=== PATIENT | female | born 1960 | race Caucasian/White ===

== ENCOUNTER → 2017-02-05 | Outpatient (CLI) | payer OTHER ==
[~2017-02-05] MED LIST: ALBU1AER9 INH; BUPR-269 PO; COEN1CAP17 PO; ESTR1TAB2 PO; FERR325T5 PO; FEXO1TAB49 PO; FLUT0.0529 NAE; IBUP-1428 PO; IPRA1AER2 INH; LORA-741 PO; MEDR2.5T PO; MONT1TAB3 PO; PRVC/20 PO; TRIA37.5 PO
--- NOTE | 2017-02-05 17:53 | DIAGNOSTIC IMAGING REPORT ---
MRI OF THE LUMBAR SPINE WITHOUT CONTRAST CLINICAL HISTORY: Low back pain radiating into left groin. COMPARISON STUDY: Lumbar spine MRI April 26, 2010. TECHNIQUE: Utilizing a 1.5 Mulu magnet and dedicated coil, multiplanar, multiecho imaging of the lumbar spine was performed without IV contrast. FINDINGS: For purposes of numbering on this exam, the L5-S1 disc space is assigned to axial image 23 of 25. There is 5 mm anterolisthesis of L4 and L5 which has developed since MRI April 26, 2010. This is likely on the basis of facet arthrosis. There is severe multilevel facet arthrosis within the lumbar spine. No intracanalicular mass or fluid collection is present. Conus terminates at the upper L2 level. L1-2: The central canal and neural foramen are patent. L2-3: The central canal and neural foramen are patent. L3-4: The central canal and neural foramen are patent. L4-5: There is grade I anterolisthesis. There is severe facet arthrosis. There is mild narrowing of the right neural foramen. The left neural foramen is patent. There may be a small right lateral disc osteophyte complex. L5-S1: The central canal and neural foramen are patent. There is moderate to severe facet arthrosis. IMPRESSION: 1. Grade I anterolisthesis of L4 and L5 which has developed since MRI April 26, 2010 and is likely due to facet arthrosis. 2. No central canal stenosis. 3. Mild right neural foraminal narrowing at L4-L5 with a possible far right lateral disc osteophyte complex. Electronically signed by: Alfredo Quintero M.D. 02/05/2017 5:52 PM Dictated Date/Time: 02/05/2017 5:45 PM
== END | disposition home or self-care (01) ==
LOC: C.MRI 14:57
PROVIDERS: ATTEND Physician Assistant Medical
DX: M54.5 Low back pain (principal)

== ENCOUNTER → 2017-06-11 | Outpatient (CLI) | payer OTHER ==
[~2017-06-11] MED LIST changes: -ESTR1TAB2 PO; -FEXO1TAB49 PO; -PRVC/20 PO; -TRIA37.5 PO
--- NOTE | 2017-06-11 15:11 | MAMMOGRAPHY REPORT ---
BILATERAL DIGITAL SCREENING MAMMOGRAM TOMOSYNTHESIS WITH CAD: 06/11/2017 CLINICAL HISTORY: Routine screening. Patient has no complaints. TECHNIQUE: Breast tomosynthesis in addition to standard 2D mammography was performed. Current study was also evaluated with a Computer Aided Detection (CAD) system. COMPARISON: Comparison is made to exams dated: 05/28/2016 mammogram, 05/19/2015 mammogram, 01/05/2014 mammogram, 09/17/2012 mammogram, 04/16/2011 mammogram, and 03/24/2010 mammogram - [facility]. BREAST COMPOSITION: There are scattered areas of fibroglandular density in both breasts. FINDINGS: There is a stable small grouping of punctate macrocalcifications in the lateral right breas t, that is unchanged dating back to at least 2010, therefore likely benign. No new suspicious mass, architectural distortion or cluster of microcalcifications is seen. IMPRESSION: ACR BI-RADS CATEGORY 1: NEGATIVE There is no mammographic evidence of malignancy. A 1 year screening mammogram is recommended. The pa tient will receive written notification of the results. Approximately 10% of breast cancers are not detected with mammography. A negative mammographic report should not delay biopsy if a clinically suggestive mass is present. Anna Bowman M.D. ay/:06/11/2017 14:55:36 Mixer Wet Pour: Radha REED)(M), [facility] letter sent: Normal 1/2 BI-RADS Code: ACR BI-RADS Category 1: Negative
== END | disposition home or self-care (01) ==
LOC: C.MAMM 11:26
PROVIDERS: ATTEND Obstetrics & Gynecology
DX: Z12.31 Encounter for screening mammogram for malignant neoplasm of breast (principal)

== ENCOUNTER → 2017-06-24 | Outpatient (CLI) | payer OTHER ==
[2017-06-24 13:18] LABS: BLOOD UREA NITROGEN 16 mg/dl (7-18); BUN/CREATININE RATIO 16.9 (10-20); CALCIUM 9.5 mg/dl (8.5-10.1); CARBON DIOXIDE 28 mmol/L (21-32); CHLORIDE 97 mmol/L (98-107); CREATININE 0.97 mg/dl (0.60-1.20); GLUCOSE 104 mg/dl (70-99); POTASSIUM 3.6 mmol/L (3.5-5.1); SODIUM 135 mmol/L (136-145)
== END | disposition home or self-care (01) ==
LOC: C.LAB 11:20
PROVIDERS: ATTEND Family Medicine
DX: Z79.899 Other long term (current) drug therapy (principal)